=== PATIENT | female | born 1965 | race Caucasian/White ===

== ENCOUNTER 2016-09-23 11:04 | Emergency (ER) | payer OTHER ==
[2016-09-23 11:55] LABS: HEMOGLOBIN 11.8 gm/dl (12.3-15.3); RED BLOOD COUNT 4.02 M/UL (4.00-5.10); WHITE BLOOD COUNT 8.3 K/UL (4.5-11.0)
[2016-09-23 12:20] LABS: BUN/CREATININE RATIO 20 (0-10)
[2017-02-25] MEDS ORDERED: PROZAC10 MG PO (07:46)
[2017-02-25] MEDS ORDERED: IMITREX25 MG PO (07:46)
[2017-02-25] MEDS ORDERED: CLARITIN 10MG T10 MG PO (07:47)
[2017-02-25] MEDS ORDERED: VENTOLIN/PROVE0.5 ML INH (07:48)
[2017-02-25] MEDS ORDERED: VENTOLIN HFA 66.7 GM INH (07:49)
[2017-02-25] MEDS ORDERED: MONTELUKAST SODI4 M1 PO (07:49)
[2017-02-25] MEDS ORDERED: FLUTICASONE (07:50)
[2017-02-25] MEDS ORDERED: GABAPENTIN400 MG PO (07:51)
[2017-02-25] MEDS ORDERED: IBUPROFEN400 MG PO (07:52)
[2017-02-25] MEDS ORDERED: GLUCOPHAGE 500500 MG PO (07:53)
[2017-02-25] MEDS ORDERED: FENOFIBRATE134 MG PO (07:53)
== END 2016-09-23 12:50 | disposition home or self-care (01) ==
LOC: ER1 11:04
PROVIDERS: Physician Assistant Medical
DX: J44.1 Chronic obstructive pulmonary disease with (acute) exacerbation (principal); B34.9 Viral infection, unspecified; E11.9 Type 2 diabetes mellitus without complications; G43.909 Migraine, unspecified, not intractable, without status migrainosus; Z79.84 Long term (current) use of oral hypoglycemic drugs; Z79.899 Other long term (current) drug therapy
CPT/HCPCS: 36415; 71020; 80053; 81001; 82150; 83690; 85025; 94640; 94664; 96374; 99284; J2405; J7030

== ENCOUNTER → 2016-10-16 | Outpatient (CLI) | payer OTHER ==
[~2016-10-16] MED LIST: CLARITIN 10MG T10 MG PO; FENOFIBRATE134 MG PO; FLUTICASONE; GABAPENTIN400 MG PO; GLUCOPHAGE 500500 MG PO; IBUPROFEN400 MG PO; IMITREX25 MG PO; MONTELUKAST SODI4 M1 PO; PROZAC10 MG PO; VENTOLIN HFA 66.7 GM INH; VENTOLIN/PROVE0.5 ML INH
== END ==
LOC: RAD 10:34
DX: J18.9 Pneumonia, unspecified organism (principal); J44.9 Chronic obstructive pulmonary disease, unspecified
CPT/HCPCS: 71020

== ENCOUNTER → 2017-02-25 | Day surgery (SDC) | payer OTHER | END | disposition home or self-care (01) | LOC: OR 06:49 | PROVIDERS: Internal Medicine Gastroenterology | PROC: 0DB68ZX Excision of Stomach, Via Natural or Artificial Opening Endoscopic, Diagnostic (ICD-10-PCS; principal; 2017-02-25 09:45) | DX: K29.70 Gastritis, unspecified, without bleeding (principal); B96.81 Helicobacter pylori [H. pylori] as the cause of diseases classified elsewhere; K29.81 Duodenitis with bleeding; K26.9 Duodenal ulcer, unspecified as acute or chronic, without hemorrhage or perforation; K21.0 Gastro-esophageal reflux disease with esophagitis; J44.9 Chronic obstructive pulmonary disease, unspecified; E78.00 Pure hypercholesterolemia, unspecified; E66.8 Other obesity; Z86.69 Personal history of other diseases of the nervous system and sense organs; Z87.891 Personal history of nicotine dependence; Z79.1 Long term (current) use of non-steroidal anti-inflammatories (NSAID); Z79.84 Long term (current) use of oral hypoglycemic drugs; Z79.899 Other long term (current) drug therapy; Z68.36 Body mass index [BMI] 36.0-36.9, adult | CPT/HCPCS: 82962; J2250; J3010; J7030 ==